=== PATIENT | female | born 1950 ===

== ENCOUNTER 2022-08-18 10:44 | Emergency (ER) | payer MEDICARE, OTHER ==
[2022-08-18] MEDS ORDERED: NS IV 1000 ML 1,000 ML IV STA (11:13)
[2022-08-18 11:16] LABS: BASOPHILS % (AUTO) 0 % (0-10); EOSINOPHILS # (AUTO) 0.1 10^3/uL (0.0-0.3); EOSINOPHILS % (AUTO) 1 % (0-10); HEMATOCRIT 42 % (35-52); HEMOGLOBIN 13.4 g/dL (11.5-16.0); LYMPHOCYTES # (AUTO) 1.2 10^3/uL (1.0-4.0); LYMPHOCYTES % (AUTO) 16 % (12-44); MEAN CORPUSCULAR HEMOGLOBIN 28 pg (25-34); MEAN CORPUSCULAR HGB CONC 32 g/dL (32-36); MEAN CORPUSCULAR VOLUME 87 fL (80-99); MEAN PLATELET VOLUME 10.2 fL (9.0-12.2); MONOCYTES # (AUTO) 0.3 10^3/uL (0.0-1.0); MONOCYTES % (AUTO) 4 % (0-12); NEUTROPHILS # (AUTO) 5.9 10^3/uL (1.8-7.8); NEUTROPHILS % (AUTO) 79 % (42-75); PLATELET COUNT 248 10^3/uL (130-400); WHITE BLOOD COUNT 7.4 10^3/uL (4.3-11.0)
--- NOTE | 2022-08-18 11:23 | ED Cough/URI ---
General Chief Complaint: Respiratory Problems Stated Complaint: LOW O2 Nursing Triage Note: Patient presents to the ED with c/o shortness of breath, cough, wheezing, fatigue, and weakness. States symptom onset 4 days ago. Was seen at [facility] walk in clinic and sent to the ED due to wheezing and hypoxia. [facility] staff reported they were unable to get patients oxygen saturation above 92% after nebulized albuterol treatment. Patient is alert and oriented x4. States she received COVID booster 08-14-22 and recently COVID+ in the beginning of July. Source: patient History of Present Illness Date Seen by Provider: Aug 18, 2022 Time Seen by Provider: 10:51 Initial Comments 71-year-old female presenting with 4 days of increasing shortness of breath, cough, wheezing, fatigue and generalized weakness. She is more out of breath with exertion. She was seen at urgent care this morning and reportedly had a chest x-ray and a breathing treatment. However she was hypoxic and the best they could get her up she was 92% right after nebulizer treatment. She does report having recent COVID infection on July 04 and then had a COVID vaccination on August 14. The last 4 days she has had subjective fever and chills with worsening respiratory symptoms. She is coughing up some yellow- green sputum. She reports a history of hypertension and diabetes that are well controlled with medication. Timing/Duration: getting worse Severity/Quality: severe, productive cough Prior Episodes/Possible Cause: no prior episodes Modifying Factors: Worse With Activity Associated Symptoms: cough, fever/chills (subjective), lightheadedness, muscle aches, shortness of breath, wheezing Allergies and Home Medications Allergies Coded Allergies: Sulfa (Sulfonamide Antibiotics) (Verified Allergy, Unknown, 08/18/22) Patient Home Medication List Home Medication List Reviewed: Yes Review of Systems Review of Systems Constitutional: see HPI, chills, fever (subjective) EENTM: no symptoms reported Respiratory: see HPI Cardiovascular: No chest pain Gastrointestinal: no symptoms reported Genitourinary: no symptoms reported Musculoskeletal: other (generalized body aches) Skin: No rash Psychiatric/Neurological: See HPI Hematologic/Lymphatic: Denies Blood Clots, Denies Easy Bleeding, Denies Easy Bruising Past [id number]-Tiugin Hx Patient Social History Tobacco Use?: No Use of E-Cig and/or Vaping dev: No Substance use?: No Alcohol Use?: No Pt feels they are or have been: No Immunizations Up To Date First/Initial COVID19 Vaccinat: YES Second COVID19 Vaccination Dario: YES Third COVID19 Vaccination Date: YES Past Medical History Surgery/Hospitalization HX: DM; HTN; Anxiety; Covid infection Jul 04, 2022 Physical Exam Vital Signs - First Documented 08/18/22 08/18/22 10:50 11:18 Temp 36.7 Pulse 114 Resp 13 B/P (MAP) 137/62 (87) Pulse Ox 92 O2 Delivery Room Air O2 Flow Rate 2.00 Capillary Refill : Less Than 3 Seconds Height: '" Weight: lbs. oz. kg; BMI Method: General Appearance: WD/WN, no apparent distress HEENT: PERRL/EOMI, pharynx normal Neck: non-tender, full range of motion, supple, normal inspection Respiratory: chest non-tender, no respiratory distress, no accessory muscle use, decreased breath sounds, rhonchi, wheezing, expiration, inspiration Cardiovascular: normal peripheral pulses, tachycardia Gastrointestinal: normal bowel sounds, non tender, soft, no pulsatile mass Extremities: normal range of motion, non-tender, normal capillary refill Neurologic/Psychiatric: informatics application analyst II-XII nml as tested, no motor/sensory deficits, alert, oriented x 3 Skin: normal color, warm/dry; No rash Focused Exam Lactate Level 08/18/22 11:00: Lactic Acid Level 2.13*H Lactic Acid Level Laboratory Tests Test 08/18/22 11:00 Lactic Acid Level 2.13 MMOL/L (0.50-2.00) *H Progress/Results/Core Measures Suspected Sepsis SIRS Temperature: Pulse: 114 Respiratory Rate: 13 Laboratory Tests 08/18/22 11:00: White Blood Count 7.4 Blood Pressure 137 /62 Mean: 87 08/18/22 11:00: Lactic Acid Level 2.13*H Laboratory Tests 08/18/22 11:00: Creatinine 0.96, Platelet Count 248, Total Bilirubin 0.5 Results/Orders Lab Results Laboratory Tests Test 08/18/22 11:00 Range/Units White Blood Count 7.4 4.3-11.0 10^3/uL Red Blood Count 4.84 3.80-5.11 10^6/uL Hemoglobin 13.4 11.5-16.0 g/dL Hematocrit 42 35-52 % Mean Corpuscular Volume 87 80-99 fL Mean Corpuscular Hemoglobin 28 25-34 pg Mean Corpuscular Hemoglobin Concent 32 32-36 g/dL Red Cell Distribution Width 13.7 10.0-14.5 % Platelet Count 248 130-400 10^3/uL Mean Platelet Volume 10.2 9.0-12.2 fL Immature Granulocyte % (Auto) 0 % Neutrophils (%) (Auto) 79 H 42-75 % Lymphocytes (%) (Auto) 16 12-44 % Monocytes (%) (Auto) 4 0-12 % Eosinophils (%) (Auto) 1 0-10 % Basophils (%) (Auto) 0 0-10 % Neutrophils # (Auto) 5.9 1.8-7.8 10^3/uL Lymphocytes # (Auto) 1.2 1.0-4.0 10^3/uL Monocytes # (Auto) 0.3 0.0-1.0 10^3/uL Eosinophils # (Auto) 0.1 0.0-0.3 10^3/uL Basophils # (Auto) 0.0 0.0-0.1 10^3/uL Immature Granulocyte # (Auto) 0.0 0.0-0.1 10^3/uL Sodium Level 132 L 135-145 MMOL/L Potassium Level 3.5 L 3.6-5.0 MMOL/L Chloride Level 94 L 98-107 MMOL/L Carbon Dioxide Level 25 21-32 MMOL/L Anion Gap 13 5-14 MMOL/L Blood Urea Nitrogen 9 7-18 MG/DL Creatinine 0.96 0.60-1.30 MG/DL Estimat Glomerular Filtration Rate 63 BUN/Creatinine Ratio 9 Glucose Level 197 H 70-105 MG/DL Lactic Acid Level 2.13 *H 0.50-2.00 MMOL/L Calcium Level 8.6 8.5-10.1 MG/DL Corrected Calcium 8.5 8.5-10.1 MG/DL Total Bilirubin 0.5 0.1-1.0 MG/DL Aspartate Amino Transf (AST/SGOT) 24 5-34 U/L Alanine Aminotransferase (ALT/SGPT) 19 0-55 U/L Alkaline Phosphatase 62 40-136 U/L C-Reactive Protein 5.38 H <0.50 MG/DL Total Protein 7.6 6.4-8.2 GM/DL Albumin 4.1 3.2-4.5 GM/DL My Orders Orders - DAYNE MCKEON MD Cbc With Automated Diff (08/18/22 11:11) Comprehensive Metabolic Panel (08/18/22 11:11) Blood Culture (08/18/22 11:11) Ua Culture If Indicated (08/18/22 11:11) Chest 1 View Ap/Pa Only (08/18/22 11:11) Ed Iv/Invasive Line Start (08/18/22 11:11) Crp Fs (08/18/22 11:11) Lactic Acid Analyzer (08/18/22 11:11) O2 (08/18/22 11:13) Ns Iv 1000 Ml (Sodium Chloride 0.9%) (08/18/22 11:13) Sputum Culture (08/18/22 11:16) Ct Angio Chest W (08/18/22 11:56) Ceftriaxone 1 Gm Pre-Mix (Rocephin 1 Gm (08/18/22 11:57) Azithromycin Injection (Zithromax Inject (08/18/22 11:57) Iohexol Injection (Omnipaque 350 Mg/Ml 1 (08/18/22 12:30) Received Contrast (Hold Metformin- Contr (08/18/22 12:30) Ns (Ivpb) (Sodium Chloride 0.9% Ivpb Bag (08/18/22 12:30) Medications Given in ED Current Medications Medications Dose Ordered Sig/Sascha Route Start Time Stop Time Status Last Admin Dose Admin Iohexol 75 ml ONCE ONCE IV 08/18/22 12:30 08/18/22 12:31 DC 08/18/22 12:39 75 ML Sodium Chloride 100 ml ONCE ONCE IV 08/18/22 12:30 08/18/22 12:31 DC 08/18/22 12:39 80 ML Vital Signs/I&O 08/18/22 08/18/22 08/18/22 10:50 11:18 14:10 Temp 36.7 36.7 Pulse 114 105 Resp 13 15 B/P (MAP) 137/62 (87) 142/77 Pulse Ox 92 94 94 O2 Delivery Room Air Nasal Cannula Nasal Cannula O2 Flow Rate 2.00 2.00 2.00 Capillary Refill : Less Than 3 Seconds Blood Pressure Mean: 87 Progress Note #1: Progress Note Potential diagnosis of pneumonia, COVID infection, pulmonary embolism, bronchitis, respiratory failure with hypoxia, viral syndrome. Obtain peripheral IV access and send labs for complete blood count, comprehensive metabolic profile, blood cultures, lactic acid, urinalysis to evaluate her hydration status, chest x-ray to look for signs of infiltrate or pneumonia since unable to access imaging from [facility]. She may need a CT scan of her chest with IV contrast to evaluate for pulmonary embolism with her recent COVID infection and COVID booster. Placed on cardiac telemetry monitoring and initially this showed normal sinus rhythm with a heart rate of 110 sinus tachycardia. Administer normal saline 1 L IV fluid bolus for hydration and tachycardia. She did just receive a breathing treatment from urgent care prior to coming to the emergency department so that may be contr ibuting to her sinus tachycardia. She was afebrile and she was maintaining good blood pressure. Progress Note #2: Progress Note On my review of her 1 view chest x-ray she has patchy diffuse interstitial changes and a right lower lobe pneumonia. Complete blood count showed a normal white blood cell count of 7.4. She was not anemic. Her comprehensive metabolic profile showed mild elevation of glucose to 197. Her lactic acid was 2.13. Will order Rocephin 1 g IV along with azithromycin 500 mg IV for pneumonia. When reviewing results with patient and spouse on room air she still decreased to 89 to 90% on her O2 saturation. It is not as low as the 86% when she first arrived from urgent care. However she is laying in the bed and not exerting herself. I advised them that I felt it was appropriate to admit to the hospital for at least a day or 2 to make sure that her oxygen saturation is coming up and she does not require home oxygen. This would give a chance for the antibiotics to start helping with her infection. She was agreeable to going to [facility] since her primary care provider is there. I advised her that a CT scan of the chest with IV contrast will be done as well to look for signs of pulmonary embolism and to ensure this was all just a pneumonia and not a blood clot since she has had recent COVID infection and COVID vaccine booster. In the meantime we will try to contact [facility] to find out about possible transfer provided they have bed capability and capacity. Progress Note #3: Progress Note 1220 I spoke with JUVENAL Fowler, nursing supervisor counseling and guidance at [place]. She took the information and said that they do have beds so she would have Dr. Quiroga, the public administration professor hospitalist, call me to see about provider report and possible transfer. [address] Quiroga and reviewed the patient's presentation and findings of hypoxia with pneumonia on x-ray. I advised him that I was waiting on his CT angiography report and he stated that he was okay with the patient coming to [place] and having the CT report called if she needed anticoagulation. Will contact nursing supervisor counseling and guidance and find out about a room assignment. Progress Note #4: Progress Note 1402 I reviewed the radiologist report of the CT scan of the chest with IV contrast and they did not appreciate any pulmonary embolism or aortic dissection. She does have consistent findings of pneumonia. She does have increased lymph nodes to go with the infection. Diagnostic Imaging Diagonstic Imaging: Xray Plain Films/CT/US/NM/MRI: chest Comments NAME: MARIA TERESA SMALL [facility] REC#: [id number] PT STATUS: REG ER : 1950 PHYSICIAN: DAYNE MCKEON MD ADMIT DATE: 08/18/22/ER FS Draft Date of Exam:08/18/22 CHEST 1 VIEW AP/PA ONLY Indication: Weakness and cough. Time of Exam: 11:16 AM No prior studies are available for comparison. FINDINGS: The heart size is normal. There are some patchy infiltrates in the right upper lung field as well as the right base. Left lung is clear. No effusion is identified. There is no pneumothorax. IMPRESSION: Patchy infiltrates in the right upper and right lower lung bernal suggestive of pneumonia. Dictated on workstation # [id number] Dict: 08/18/22 1128 Trans: 08/18/22 1137 [facility] [id number] Interpreted by: JULIÁN HARDY MD Electronically signed by: Reviewed: Reviewed by Me (I reviewed radiologist report at 1153) Diagonstic Imaging: CT Plain Films/CT/US/NM/MRI: chest (angiography) Comments NAME: MARIA TERESA SMALL [employer] REC#: [id number] PT STATUS: REG ER : 1950 PHYSICIAN: DAYNE MCKEON MD ADMIT DATE: 08/18/22/ER FS Draft Date of Exam:08/18/22 CT ANGIO CHEST W PROCEDURE: CT angiography of the chest with contrast. TECHNIQUE: Multiple contiguous axial images were obtained through the chest after uneventful bolus administration of intravenous contrast. 3D reconstructed CTA MIP acquisitions were also performed. Auto Exposure Controls were utilized during the CT exam to meet ALARA standards for radiation dose reduction. INDICATION: Shortness of air and cough. COMPARISON: No prior studies are available for comparison. Evaluation of the pulmonary arterial system is without evidence of thromboembolism. No filling defects are seen within central, lobar and segmental branches. Thoracic aorta is normal caliber. There is no dissection. No pericardial or pleural fluid identified. There is extensive nodular infiltrate identified throughout the right upper lobe and, to a lesser degree, in the right middle lobe and moderate infiltrate in the right lower lobe. There is a slightly irregular nodule in the medial aspect of the right lower lobe measuring 12 mm which is indeterminate. Left lung is fairly clear. There is abnormal soft tissue in the high right paratracheal location measuring 2.3 x 1.6 cm, consistent with an enlarged lymph node. There are mildly prominent lymph nodes in the emilia bilaterally, as well. Upper abdomen is unremarkable. IMPRESSION: 1. No evidence of pulmonary embolism or acute aortic disease. 2. Extensive interstitial nodular and airspace infiltrates in the right upper and right lower lobes as well as the right middle lobe. There are enlarged lymph nodes in the mediastinum and emilia which are indeterminate. There is a 12 mm nodule in the right lower lobe, as well. Follow-up after course of therapy is recommended to confirm complete clearing. Dictated on workstation # [id number] Dict: 08/18/22 1242 Trans: 08/18/22 1250 [facility] [id number] Interpreted by: JULIÁN HARDY MD Electronically signed by: Reviewed: Reviewed by Me (I reviewed radiologist report at 1402) Departure Impression Primary Impression: Hypoxia Additional Impressions: Right lower lobe pulmonary infiltrate Pneumonia of right upper lobe due to infectious organism Disposition: HOME, SELF-CARE Condition: Stable Transfer Transfer Reason: Patient preference (PCP in [place] so requested to go there for hospitalization and continuity of care) Time Spoke to Accepting Phy: 12:35 Transfer Progress Notes Discussed patient with Dr. Quiroga, public administration professor hospitalist today at [facility]. I reviewed that the patient's been having worsening symptoms over the last 4 days mainly cough and congestion with shortness of breath. She was found to be hypoxic when she had gone through urgent care and here in the emergency department. She had findings for pneumonia in the right upper and right lower lung on x-ray. She was hemodynamically stable but was having O2 requirement of 2 L to keep her O2 sats consistently above 90%. At times she was dipping down to 86% on room air. She had a normal white blood cell count and chemistry panel but she did have elevation of her glucose to 197 and lactic was 2.13. Her CT scan of the chest to evaluate for possible PE was negative for PE but she had extensive interstitial changes for pneumonia and infection. She was given 1 g of Rocephin and 500 mg of azithromycin IV. She had received a breathing treatment at urgent care and she said that it made her feel sick. She was maintaining her oxygen at 92 to 93% on 2 L by nasal cannula. He accepted her for a floor bed admission at [facility]. Transfer Facility: [facility] Method of Transfer: EMS Departure-Patient Inst. Referrals: HARLEEN JOHNS APRN (PCP) Primary Care Physician NO,LOCAL PHYSICIAN (Family) Primary Care Physician DAYNE MCKEON MD Aug 18, 2022 11:23
[2022-08-18 11:27] LABS: BILIRUBIN,TOTAL 0.5 MG/DL (0.1-1.0); CALCIUM 8.6 MG/DL (8.5-10.1); CREATININE SERUM 0.96 MG/DL (0.60-1.30); POTASSIUM 3.5 MMOL/L (3.6-5.0)
[2022-08-18 11:28] LABS: ALBUMIN 4.1 GM/DL (3.2-4.5); TOTAL PROTEIN 7.6 GM/DL (6.4-8.2)
--- NOTE | 2022-08-18 11:37 | Diagnostic Imaging Report ---
Indication: Weakness and cough. Time of Exam: 11:16 AM No prior studies are available for comparison. FINDINGS: The heart size is normal. There are some patchy infiltrates in the right upper lung field as well as the right base. Left lung is clear. No effusion is identified. There is no pneumothorax. IMPRESSION: Patchy infiltrates in the right upper and right lower lung bernal suggestive of pneumonia. Dictated by: Dictated on workstation # [id number]
[2022-08-18] MEDS ORDERED: AZITHROMYCIN INJECTION 500 MG in NS (IVPB) 250 ML IV STA (11:57)
[2022-08-18] MEDS ORDERED: cefTRIAXone 1 GM PRE-MIX 50 ML IV STA (11:57)
[2022-08-18] MEDS ORDERED: IOHEXOL 350 MG/ML 100 ML (OMNIPAQUE 350) VIAL IV ONE (12:30)
[2022-08-18] MEDS ORDERED: NS 100 ML (IVPB) BAG IV ONE (12:30)
[2022-08-18] MEDS ORDERED: HOLD METFORMIN - RECEIVED CONTRAST 20 ML VIAL IV SCH (12:30)
--- NOTE | 2022-08-18 12:50 | Diagnostic Imaging Report ---
PROCEDURE: CT angiography of the chest with contrast. TECHNIQUE: Multiple contiguous axial images were obtained through the chest after uneventful bolus administration of intravenous contrast. 3D reconstructed CTA MIP acquisitions were also performed. Auto Exposure Controls were utilized during the CT exam to meet ALARA standards for radiation dose reduction. INDICATION: Shortness of air and cough. COMPARISON: No prior studies are available for comparison. Evaluation of the pulmonary arterial system is without evidence of thromboembolism. No filling defects are seen within central, lobar and segmental branches. Thoracic aorta is normal caliber. There is no dissection. No pericardial or pleural fluid identified. There is extensive nodular infiltrate identified throughout the right upper lobe and, to a lesser degree, in the right middle lobe and moderate infiltrate in the right lower lobe. There is a slightly irregular nodule in the medial aspect of the right lower lobe measuring 12 mm which is indeterminate. Left lung is fairly clear. There is abnormal soft tissue in the high right paratracheal location measuring 2.3 x 1.6 cm, consistent with an enlarged lymph node. There are mildly prominent lymph nodes in the emilia bilaterally, as well. Upper abdomen is unremarkable. IMPRESSION: 1. No evidence of pulmonary embolism or acute aortic disease. 2. Extensive interstitial nodular and airspace infiltrates in the right upper and right lower lobes as well as the right middle lobe. There are enlarged lymph nodes in the mediastinum and emilia which are indeterminate. There is a 12 mm nodule in the right lower lobe, as well. Follow-up after course of therapy is recommended to confirm complete clearing. Dictated by: Dictated on workstation # [id number]
[2022-08-18 14:10] VITALS: BP 142/77
== END 2022-08-18 14:10 | disposition still patient (30) ==
LOC: ER FS 10:46
DX: J16.8 Pneumonia due to other specified infectious organisms (principal); R91.8 Other nonspecific abnormal finding of lung field; R09.02 Hypoxemia; E11.9 Type 2 diabetes mellitus without complications; Z86.16 Personal history of COVID-19; Z88.2 Allergy status to sulfonamides
CPT/HCPCS: 36415; 71045; 71275; 80053; 83605; 85025; 86141; 87040; 87070; 87205; Q9967